=== PATIENT | female | born 1990 | race Caucasian/White ===

== ENCOUNTER 2023-07-17 09:10 | Outpatient (CLI) | payer OTHER ==
[~2023-07-17] VITALS: Ht 162.6 cm; Wt 90.0 kg
[~2023-07-17 09:10] MED LIST: CEPHALEXIN250 M1 PO
[2023-07-17 09:15] VITALS: BP 115/72; PULSE 85; TEMP 98.1
[2023-07-17] MEDS ORDERED: LEVOXYL0.112 MG PO (09:21)
[2023-07-17 10:15] VITALS: BP 106/63; PULSE 80
--- NOTE | 2023-07-17 10:21 | NUR ---
0915 PATIENT HERE FOR COMPLAINTS OF HAVING CONTRACTIONS EARLY THIS MORNING FOR AWHILE AND THEN FELL BACK TO SLEEP. WHEN WOKE FELT CSOME TIGHTENING AGAIN. EFM ON FHT 120 BABY VERY ACTIVE. NO CONTRACTIONS ON MONITOR OR PALPATED. IRRITABILTY NOTED TO MONITO STRIP. SVE. /VERY HIGH AND BALLOTABLE. NO FLUID OR BLOOD ON GLOVE WITH CHECK. FRIEND AT BEDSIDE FOR SUPPORT SINCE FATHER OF BABY IS DEPLOYED.
[2023-07-17 10:45] VITALS: BP 104/62; PULSE 78
--- NOTE | 2023-07-17 11:01 | NUR ---
1050 PATIENT REFUSES SVE. STATES MY CONTRACTIONS HAVE GONE AWAY. IM NOT FEELING ANYTHING NOW. ALL DISCHARGE INSTRUCTIONS GIVEN TO PATIENT WITH VERBAL UNDERSTANDING. WILL FOLLOW UP WITH DR MARTÍNEZ ON FRIDAY.
== END 2023-07-17 11:00 | disposition home or self-care (01) ==
LOC: LDRO 09:10
DX: O47.1 False labor at or after 37 completed weeks of gestation (principal); Z3A.38 38 weeks gestation of pregnancy